=== PATIENT | female | born 1960 ===

== ENCOUNTER 2018-12-20 09:09 | Day surgery (SDC) | payer OTHER ==
[2018-12-19 14:31] VITALS: BMI 29.9
[2018-12-20] MEDS ORDERED: Propofol 10 mg/ml Inj (20 ML) ONE ×2 (11:39)
[2018-12-20] MEDS ORDERED: Lactated Ringer's 500 ML IV ONE (11:40)
[2018-12-20 13:38] VITALS: BP 121/61; PULSE 79; RESP 19; TEMP 97.8; O2SAT 99
== END 2018-12-20 13:35 | disposition home or self-care (01) ==
LOC: C.ENDO 09:09
PROVIDERS: ATTEND Internal Medicine Gastroenterology
DX: Z12.11 Encounter for screening for malignant neoplasm of colon (principal); D12.3 Benign neoplasm of transverse colon; D12.5 Benign neoplasm of sigmoid colon; K29.50 Unspecified chronic gastritis without bleeding; B96.81 Helicobacter pylori [H. pylori] as the cause of diseases classified elsewhere; K29.00 Acute gastritis without bleeding; K57.30 Diverticulosis of large intestine without perforation or abscess without bleeding; K64.1 Second degree hemorrhoids; K44.9 Diaphragmatic hernia without obstruction or gangrene; K21.0 Gastro-esophageal reflux disease with esophagitis; I10 Essential (primary) hypertension; E03.9 Hypothyroidism, unspecified; J45.909 Unspecified asthma, uncomplicated
CPT/HCPCS: 43239; 45380; 45385; 88305; 88312; 88313; 88342; J2704; J7120